=== PATIENT | female | born 1980 | race Caucasian/White ===

== ENCOUNTER 2021-10-11 12:42 | Emergency (ER) | payer BC ==
[~2021-10-11] VITALS: Ht 182.9 cm; Wt 71.0 kg
[2021-10-11 14:06] LABS: BASOPHILS % (AUTO) 0.5 % (0-1); EOSINOPHILS % (AUTO) 0.3 % (0-6); HEMATOCRIT 41.1 % (35.0-45.0); HEMOGLOBIN 14.2 g/dl (12.0-16.0); LYMPHOCYTES # (AUTO) 1.6 X10'3 (1.1-4.8); LYMPHOCYTES % (AUTO) 21.9 % (21-51); MEAN CORPUSCULAR HEMOGLOBIN 33.3 PG (27.0-31.0); MEAN CORPUSCULAR HGB CONC 34.4 g/dL (33.0-36.5); MEAN CORPUSCULAR VOLUME 96.7 FL (78-98); MEAN PLATELET VOLUME 7.2 FL (7.4-10.4); MONOCYTES # (AUTO) 0.6 X10'3 (0-0.9); NEUTROPHILS % (AUTO) 69.3 % (42-75); PLATELET COUNT 373 X10'3 (140-440); RED BLOOD COUNT 4.25 X10'6 (4.20-5.60); RED CELL DISTRIBUTION WIDTH 12.7 % (11.5-14.5); WHITE BLOOD COUNT 7.2 X10'3 (4.5-11.0)
[2021-10-11 14:20] LABS: ALANINE AMINOTRANSFERASE 39 U/L (12-78); ALBUMIN 3.9 G/DL (3.4-5.0); ALKALINE PHOSPHATASE 62 IU/L (46-116); ANION GAP 16 (8-16); ASPARTATE AMINO TRANSFERASE 24 U/L (10-37); BILIRUBIN,TOTAL 0.4 MG/DL (0.1-1.0); BLOOD UREA NITROGEN 12 MG/DL (7-18); BUN/CREATININE RATIO 15.4 (6.6-38.0); CHLORIDE 99 MMOL/L (99-107); CREATININE 0.78 MG/DL (0.40-0.90); GLUCOSE 94 MG/DL (70-104); POTASSIUM 3.5 MMOL/L (3.5-5.1); SODIUM 135 MMOL/L (135-145); TOTAL CARBON DIOXIDE 20.3 MMOL/L (24-32); TOTAL PROTEIN 7.8 G/DL (6.4-8.2); eGFR 81 ML/MIN
--- NOTE | 2021-10-11 15:23 | NUR ---
PT NOTIFED TECH THAT SHE IS WEARING A SCOPOLAMINE PATCH FOR THE 1ST TIME.
[2021-10-11 16:53] VITALS: BP 123/81
== END 2021-10-11 16:55 | disposition home or self-care (01) ==
LOC: ER 12:43
DX: R55 Syncope and collapse (principal); R42 Dizziness and giddiness; Z79.899 Other long term (current) drug therapy
CPT/HCPCS: 36415; 71045; 80053; 83880; 84484; 85025; 93005; 99285